=== PATIENT | male | born 1985 | race Caucasian/White ===

== ENCOUNTER → 2017-03-28 | Outpatient (CLI) | payer BC ==
[~2017-03-28] MED LIST: NEXIUM PO
--- NOTE | ~2017-03-28 | ST ---
Unit #: [id number] #: [id number] Patient: JG PIERSON [id number] [address] [address] [id number] O MR#: [id number] NAME: JG PIERSON. : 1985 SEX: M STUDY DATE/TIME: 03/28/2017 UNIT: [facility] ROOM: STUDY DESCRIPTION: Stress Test Attending Physician: Sharmin Burton M.D. Referring Physician: Sharmin Burton M.D. Primary Care Physician: Giancarlo Ba M.D. CARDIOLOGY REPORT EXAM EKG Portion of an Exercise Cardiolite Stress Test REASON FOR EXAM Chest pain and shortness of breath. DISCUSSION Baseline EKG reveals sinus rhythm with a ventricular rate of 62 beats/minute. Possible early repolarization noted. Incomplete right bundle branch block. The patient exercised on the treadmill according to Saran protocol for 10 minutes 34 seconds achieving a workload of 12.60 METs. Maximal heart rate was 166 beats/minute which represents 88% of the maximum age predicted heart rate. Maximal blood pressure was 154/82 mmHg. The complained of a dull chest pain, 2 out of 10, in stage 3 which did not worsen in intensity. He has had a history of chest pain similar in nature that is nearly constant with no aggravating factors. There were no ST-T wave changes to suggest ischemia. There were no sustained arrhythmias noted. The test was stopped due to protocol completion. IMPRESSION 1. Nondiagnostic EKG portion of exercise Cardiolite stress test. 2. The patient complained of dull chest pain, 2 out of 10, in stage 3. 3. There were no ST or T wave changes to suggest ischemia. 4. There were no sustained arrhythmias noted. 5. Please correlate with Cardiolite images. 6. Of note, the patient was held in the stress lab for review of preliminary pictures. Dictated by... Perri Keyes APRN for Chante Davis TD: 03/28/2017 10:55 JOB #: [id number] Unit #: [id number] #: [id number] Patient: JG PIERSON CARDIOLOGY REPORT Page 1 of 1 X CARDIOLOGY REPORT
--- NOTE | ~2017-03-28 | TH ---
Unit #: [id number] #: [id number] Patient: JG PIERSON [id number] [address] [address] [id number] O MR#: [id number] NAME: JG PIERSON : 1985 SEX: M STUDY DATE/TIME: 03/28/2017 UNIT: [facility] ROOM: STUDY DESCRIPTION: Exercise stress test - Nuclear Attending Physician: Sharmin Burton M.D. Referring Physician: Sharmin Burton M.D. Primary Care Physician: Giancarlo Ba M.D. CARDIOLOGY REPORT PROCEDURE PERFORMED Exercise Cardiolite stress test - Nuclear portion. PROCEDURE Using technetium 99m-labeled Cardiolite, rest and stress SPECT images were obtained. Multiple SPECT images were obtained in various views, including horizontal and vertical long axis and short axis views of the left ventricle. Images were obtained by gated SPECT method. The patient was administered 10.4 mCi of Cardiolite at rest. The patient was administered 30.3 mCi of Cardiolite at peak exercise. Total exercise time is 10 minutes and 34 seconds. On the stress images, there is normal perfusion noted. The rest images show normal perfusion. Comparing the rest and stress images, there is no stress-induced ischemia noted. The left ventricular ejection fraction is calculated to be 59%. There is no focal wall motion abnormality seen. CONCLUSION 1. No stress-induced ischemia noted. 2. The left ventricular ejection fraction is calculated to be 59%. 3. There is no focal wall motion abnormality seen. 4. Normal exercise Cardiolite stress test. Dictated by... Chante Davis/kevin TD: 03/28/2017 16:35 JOB #: [id number] CARDIOLOGY REPORT Page 1 of 1 X Sharmin Burton MD <ELECTRONICALLY SIGNED> 05/24/17 1429 CARDIOLOGY REPORT
== END | disposition home or self-care (01) ==
LOC: CNUC 08:19
DX: R07.9 Chest pain, unspecified (principal); R00.2 Palpitations
CPT/HCPCS: 78452; 93017; A9500